=== PATIENT | male | born 1970 | race Caucasian/White ===

== ENCOUNTER 2017-03-30 17:55 | Emergency (ER) | payer OTHER ==
[~2017-03-30] VITALS: Ht 177.8 cm; Wt 117.9 kg
[~2017-03-30 17:55] MED LIST: ACYC800 PO; ASPI325 PO; ASPI81CH PO; ATOR20 PO; BUPR150ER PO; BUSP5 PO; Bactrim Ds Tab1 EACH PO; CEPH500 PO; CYCL10 PO; Cleocin HCl300 MG PO; DULO60; ETOD400 PO; FLUT.05NI; GABA600 PO; HYDACE5 PO; IBUP800 PO; IBUPROFEN; Ibuprofen Ib200 MG PO; LITH300C PO; MULVITA; NAPR500 PO; Naprosyn500 MG PO; Omeprazole20 M1 PO; PRED10 PO; RANI150; TRAZ150T57 PO; Ultram50 MG PO; ZOLP10 PO
[2017-03-30] MEDS ORDERED: Keflex500 MG PO (19:30)
[2017-03-30] MEDS ORDERED: Bactrim Ds Tab1 EACH PO (19:30)
[2017-12-01] MEDS ORDERED: Bactrim Ds Tab1 EACH PO (03:09)
[2017-12-01] MEDS ORDERED: Keflex500 MG PO (03:09)
== END 2017-03-30 19:53 | disposition home or self-care (01) ==
LOC: ER 17:55
DX: L03.113 Cellulitis of right upper limb (principal); L81.8 Other specified disorders of pigmentation; I10 Essential (primary) hypertension; Z79.899 Other long term (current) drug therapy; Z79.82 Long term (current) use of aspirin; Z87.891 Personal history of nicotine dependence
CPT/HCPCS: 99283

== ENCOUNTER 2017-04-20 08:33 | Day surgery (SDC) | payer OTHER ==
[~2017-04-20] VITALS: Ht 177.8 cm; Wt 119.3 kg
[~2017-04-20 08:33] MED LIST changes: +Keflex500 MG PO
[2017-12-01] MEDS ORDERED: Bactrim Ds Tab1 EACH PO (03:09)
[2017-12-01] MEDS ORDERED: Keflex500 MG PO (03:09)
== END 2017-04-20 23:06 | disposition home or self-care (01) ==
LOC: ORSCMMR 08:33
PROVIDERS: Surgery
PROC: 0DJD8ZZ Inspection of Lower Intestinal Tract, Via Natural or Artificial Opening Endoscopic (ICD-10-PCS; principal; 2017-04-20 10:00)
DX: Z12.11 Encounter for screening for malignant neoplasm of colon (principal); Z86.010 Personal history of colon polyps; Z85.72 Personal history of non-Hodgkin lymphomas; G47.33 Obstructive sleep apnea (adult) (pediatric); Z79.82 Long term (current) use of aspirin; Z79.899 Other long term (current) drug therapy
CPT/HCPCS: J7120